=== PATIENT | female | born 1985 | race Caucasian/White ===

== ENCOUNTER 2019-11-10 10:37 | Emergency (ER) | payer OTHER, SELFPAY ==
[2019-11-10 11:10] VITALS: BP 116/79; PULSE 76; RESP 17; TEMP 36.7; O2SAT 98
--- NOTE | 2019-11-10 12:25 | ED.ANXIETY ---
HPI - Anxiety General Chief Complaint: Anxiety Stated Complaint: dizzy, nausea, panic attack Time Seen by Provider: 11/10/19 11:50 Source: patient Mode of arrival: ambulatory Limitations: no limitations History of Present Illness HPI narrative: This is a 33 year old female that presents to the ER for increasing anxiety x 5 days. Reports that she has been having panic attacks. Reports she will fill lightheaded, foggy, and have tingling in her hands. Reports she will feel like she is hyperventilating. Reports this has been happening intermittently over the weekend. Reports on Saturday she tried to smoke marijuana to see if that would help and it made her anxiety worse. Reports history of anxiety, is not currently on any medication for anxiety. She does not have a primary care doctor. Denies suicidal or homicidal ideations. Related Data Allergies Allergy/AdvReac Type Severity Reaction Status Date / Time No Known Allergies Allergy Verified 11/10/19 11:14 Review of Systems Review of Systems: Narrative: CONSTITUTIONAL: Denies fever CARDIOVASCULAR: Denies chest pain RESPIRATORY: Denies dyspnea. PSYCHIATRIC: Reports anxiety All systems reviewed & are unremarkable except as noted in HPI and below PMFSH Past Medical History Medical History (Updated 11/10/19 @ 12:32 by Kera Stroud PA-C) History of anxiety Social History Social History (Updated 11/10/19 @ 12:32 by Kera Stroud PA-C) Substance use: current Substance use type: marijuana Exam Narrative: Exam Narrative: GENERAL: Well-appearing, well-nourished, and in no acute distress. HEAD: Normocephalic, atraumatic. EYES: PERRLA and EOMI. ENT: Nares clear, no rhinorrhea or epistaxis. Mucous membranes moist. Oropharynx without tonsillar hypertrophy exudate or other lesions. Bilateral TMs pearly cool non-bulging NECK: Supple. No adenopathy or masses. CHEST: Clear to auscultation. No respiratory distress. No wheezes rales or rhonchi HEART: Regular rate and rhythm. No murmur heard. Normal peripheral pulses. EXTREMITIES: Normal range of motion. No edema. SKIN: Warm, dry, no rash. NEURO: No focal deficits. Alert and oriented x3. Cranial nerves II through XII grossly intact PSYCH: Anxious Course Vital Signs Vital signs: Vital Signs Temperature 98.1 F 11/10/19 11:10 Pulse Rate 76 11/10/19 11:10 Respiratory Rate 17 11/10/19 11:10 Blood Pressure 116/79 11/10/19 11:10 Pulse Oximetry 98 11/10/19 11:10 Temperature 98.1 F 11/10/19 11:10 Pulse Rate 76 11/10/19 11:10 Respiratory Rate 17 11/10/19 11:10 Blood Pressure 116/79 11/10/19 11:10 Pulse Oximetry 98 11/10/19 11:10 MDM - Anxiety MDM Narrative Medical decision making narrative: Patient presents the emergency department for increasing anxiety over the last 5 days. Reports history of anxiety in the past. Is not currently on any medication for this. She does not have a primary care doctor. Patient will be given buspirone as needed for anxiety until she is able to see a primary doctor. Patient is stable and felt appropriate for further outpatient evaluation. She was given warnings to return to the ER Critical Care Time Critical Care Time Critical Care Time: No Discharge Plan Discharge Clinical Impression: Acute anxiety Patient Disposition: Home, Self-Care Condition: Stable Instructions: Anxiety (ED) Additional Instructions: Return to the emergency department if you experience fever, chest pain, shortness of breath, thoughts of harming yourself or anyone else, or any other symptoms that are concerning to you Buspirone twice daily as needed for anxiety Follow-up with primary care doctor Prescriptions: New buspirone 10 mg tablet 10 mg PO BID PRN (Reason: anxiety) Qty: 14 RF: 0 Follow-up/Referrals: PHYSICIAN,TRAINING AND DEVELOPMENT SPECIALIST [Primary Care Provider] - Jamel Gaines MD [Physician] - 2 Days
[2019-11-10 12:38] VITALS: BP 115/72; PULSE 66; RESP 17; O2SAT 100
== END 2019-11-10 12:40 | disposition home or self-care (01) ==
PROVIDERS: Emergency Provider Emergency Medicine
DX: F41.9 Anxiety disorder, unspecified (principal)
CPT/HCPCS: 99283

== ENCOUNTER → 2020-03-21 14:01 | Outpatient (CLI) | payer OTHER, SELFPAY ==
--- NOTE | ~2020-03-21 | XR_ITS ---
EXAMINATION: XR chest 2V EXAM DATE: 03/21/2020 14:23 INDICATION: Tobacco use. TECHNIQUE: Frontal and lateral projections of the chest obtained and reviewed. There is no prior margarita dy for comparison. FINDINGS: The lungs are clear. There are no pleural effusions. The cardiomediastinal silhouette is within normal limits. There is no pneumothorax suspected. The bones and soft tissues are unremarkab le. IMPRESSION: No acute cardiopulmonary findings. Reviewed, dictated and finalized at location B. ID INTERN
== END ==
PROVIDERS: PCP Emergency Medicine; Visit Provider Emergency Medicine
DX: Z72.0 Tobacco use (principal)
CPT/HCPCS: 71046

== ENCOUNTER 2022-02-14 08:06 | Emergency (ER) | payer OTHER, SELFPAY ==
[2022-02-14 08:13] VITALS: BP 105/59; PULSE 130; RESP 16; TEMP 37.1; O2SAT 98
--- NOTE | 2022-02-14 08:18 | ED.SKABFB ---
HPI - Skin/Abscess/Foreign Bdy General Chief complaint: Skin/Abscess/Foreign Body Stated complaint: Bee Sting Time Seen by Provider: 02/14/22 08:08 Source: patient and RN notes reviewed History of Present Illness HPI narrative: Patient is a 36-year-old female who presents the urgent care with complaints of a lasting to the upper right thigh. Patient states that happened on Saturday and she has intermittently used hydrocortisone cream, Benadryl cream and oral Benadryl and ice. Patient denies any fevers, nausea or vomiting. States that it starting to burn, itch and be painful. No other acute complaints. No acute distress noted. Patient read the plan of care. Some parts of this dictation were generated by voice recognition software and may contain typographical and/or grammatical inaccuracies. Related Data Home Medications Medication Instructions Recorded Confirmed drospirenone 3 mg-ethinyl 1 tablet DAILY 02/14/22 02/14/22 estradiol 0.02 mg tablet fluoxetine 20 mg tablet 20 mg DAILY 02/14/22 02/14/22 Allergies Allergy/AdvReac Type Severity Reaction Status Date / Time No Known Allergies Allergy Verified 02/14/22 08:22 Review of Systems Review of Systems: CONSTITUTIONAL: Denies fever, chills, or sweats. EYES: Denies visual changes, redness, or discharge. ENT: Denies rhinorrhea, congestion, sore throat, or otalgia. CARDIOVASCULAR: Denies chest pain, palpitations, or edema. RESPIRATORY: Denies cough or dyspnea. GASTROINTESTINAL: Denies abdominal pain, nausea, vomiting, or diarrhea. GENITOURINARY: Denies dysuria or hematuria. SKIN: Reports of a wasp stings to the upper right thigh MUSCULOSKELETAL: Denies back pain, joint pain, or myalgia. NEUROLOGIC: Denies headache, numbness, or weakness. All other systems reviewed are negative, except as documented in HPI. [facility] [place] Past Medical History Medical History (Updated 02/14/22 @ 08:24 by SATURNINO Castañeda) History of anxiety Social History Social History (Updated 11/10/19 @ 12:32 by Kera Stroud PA-C) Substance use: current Substance use type: marijuana Comments At the time of my signature, I reviewed and agree with the nursing past medical, surgical, social, and family history. There is no relevant family history pertinent to the patient complaint. Exam Narrative: GENERAL: This is a well-nourished, well-developed patient, in no apparent distress. HEAD: normocephalic, atraumatic. EYES: PERRL. Sclera clear/white. Vision is grossly intact. EARS: External ears normal NOSE: External nose normal with no obvious nasal discharge, nares without redness, no rhinorrhea. THROAT: Mucous membranes moist NECK: Neck supple SKIN: 8x7cm of redness, warmth, and ecchymosis to the medial upper right thigh NEURO: awake, alert, and oriented to person, place and time. There were no obvious focal neurologic abnormalities. EXTREMITIES: No clubbing, cyanosis, or edema. Course Course Level of Care: Express Care Visit Vital Signs Vital signs: Vital Signs Temperature 98.8 F 02/14/22 08:13 Pulse Rate 130 H 02/14/22 08:13 Respiratory Rate 16 02/14/22 08:13 Blood Pressure 105/59 L 02/14/22 08:13 Pulse Oximetry 98 02/14/22 08:13 Oxygen Delivery Room Air 02/14/22 08:13 Temperature 98.8 F 02/14/22 08:13 Pulse Rate 130 H 02/14/22 08:13 Respiratory Rate 16 02/14/22 08:13 Blood Pressure 105/59 L 02/14/22 08:13 Pulse Oximetry 98 02/14/22 08:13 Oxygen Delivery Room Air 02/14/22 08:13 Reviewed MDM - Skin/Abscess/Foreign Bdy MDM Narrative Medical decision making narrative: Advised the patient to complete the oral antibiotic regimen as prescribed. Be sure to eat and drink with medication. Keep ice on the area for comfort. Use Tylenol/ibuprofen as needed. Continue Benadryl or take a daily antihistamine such as Zyrtec or Claritin. Follow-up with your PCP within 2 to 5 days or for worsening symptoms or failure to improve. Differential D
== END 2022-02-14 08:30 | disposition home or self-care (01) ==
PROVIDERS: Emergency Provider Nurse Practitioner Family
DX: T63.461A Toxic effect of venom of wasps, accidental (unintentional), initial encounter (principal); F41.9 Anxiety disorder, unspecified; F12.90 Cannabis use, unspecified, uncomplicated
CPT/HCPCS: 99213; G0463

== ENCOUNTER 2022-04-07 10:31 | Emergency (ER) | payer OTHER, SELFPAY ==
[2022-04-07 10:41] VITALS: BP 98/44; PULSE 75; RESP 16; TEMP 37.4; O2SAT 100
--- NOTE | 2022-04-07 12:43 | ED.URI ---
HPI - URI/Sore Throat General Chief Complaint: Upper Respiratory Infection Stated Complaint: Sore Throat Time Seen by Provider: 04/07/22 12:43 Source: patient, RN notes reviewed and old records reviewed Mode of arrival: ambulatory Limitations: no limitations History of Present Illness HPI Narrative: 36-year-old female who presents to [facility] with complaints of sore throat, nasal drainage with some complaints of nausea verbalized which started last night. Patient reports that she has not had any known fevers, has some occasional cough and nasal drainage. Patient has taken Ibuprofen for her symptoms. Patient has been Covid vaccinated no booster, no flu shot received. Patient reports that everyone in household was ill during week of Thanksgiving all better but she still not feeling well. MD elicited complaint: cough and sore throat Pain scale (0-10): 7 Treatments prior to arrival: ibuprofen Related Data Home Medications Medication Instructions Recorded Confirmed drospirenone 3 mg-ethinyl 1 tablet DAILY 02/14/22 04/07/22 estradiol 0.02 mg tablet fluoxetine 20 mg tablet 20 mg DAILY 02/14/22 04/07/22 Allergies Allergy/AdvReac Type Severity Reaction Status Date / Time No Known Allergies Allergy Verified 04/07/22 11:43 Review of Systems Review of Systems: CONSTITUTIONAL: Denies malaise, chills, sweats, or fever. EYES: Denies visual changes, redness, or discharge. ENT: Reports rhinorrhea, congestion, sinus pain, otalgia positive for sore throat. CARDIOVASCULAR: Denies chest pain, palpitations, or edema. RESPIRATORY: Reports cough.? Denies dyspnea. GASTROINTESTINAL: Denies abdominal pain, nausea, vomiting, diarrhea SKIN: Denies rash or itching. MUSCULOSKELETAL: Denies myalgia. NEUROLOGIC: Denies headache. All systems reviewed & are unremarkable except as noted in HPI and below PMFSH Past Medical History Medical History (Updated 04/11/22 @ 20:53 by Sveta Ramírez NP) History of anxiety IBS (irritable bowel syndrome) Social History Social History (Updated 04/11/22 @ 20:54 by Sveta Ramírez NP) Smoking packs per day: 0.25 Smoking cigarettes per day: 5.0 Years smoked: 20 Smoking pack-years: 5.00 Smoking status: Current every day smoker Tobacco type: cigarettes Alcohol intake: unknown Substance use: current Substance use type: marijuana Gender identity (if verbalized by the patient): Female Comments At time of signature, agree with nursing past medical, surgical, social and family history. There is no relevant family history pertinent to the presenting complaint Exam Narrative: GENERAL: Well-appearing, well-nourished, and in no acute distress. HEAD: Normocephalic EYES: PERRLA, conjunctivae clear ENT: Nares clear, turbinates edematous and erythematous, clear discharge. Mucous membranes moist. TM pearly cool with dull light reflex bilaterally; no tragal tenderness. Oropharynx erythematous without lesions. Tonsils not enlarged and without exudate, no drooling, no hoarseness, no trismus, uvula midline.post nasal drainage. NECK: Supple. No lymphadenopathy CHEST: Clear to auscultation, breath sounds equal. No wheezing, rhonchi, rales, or stridor. No respiratory distress, speaks in full sentences.occasional cough SAO2 100% on room air HEART: Regular rate and rhythm. No murmur heard. SKIN: Warm, dry, no rash. NEURO: Alert and oriented x3. PSYCH: Normal mood and affect Course Course Emergency Course: Patient is aware of diagnosis, understands and agrees to treatment plan.? Anticipatory guidance given.? Patient agrees to follow-up as directed and is aware of reasons to seek care at the emergency department. Portions of this record may have been created with voice recognition software Level of Care: Express Care Visit Vital Signs Vital signs: Vital Signs Temperature 37.4 C 04/07/22 10:41 Pulse Rate 75 04/07/22 10:41 Respiratory Rate 16 03/29
== END 2022-04-07 13:03 | disposition home or self-care (01) ==
PROVIDERS: Emergency Provider Registered Nurse
DX: J32.9 Chronic sinusitis, unspecified (principal)
CPT/HCPCS: 87081; 87880; 99213; G0463

== ENCOUNTER 2023-02-05 12:21 | Emergency (ER) | payer OTHER, SELFPAY ==
[2023-02-05 12:24] VITALS: BP 111/62; PULSE 77; RESP 16; TEMP 36.8; O2SAT 98
--- NOTE | 2023-02-05 12:48 | ED.GENADULT ---
HPI - General Adult General Chief complaint: Upper Respiratory Infection Stated complaint: Sore Throat Source: patient Mode of arrival: ambulatory Limitations: no limitations History of Present Illness HPI narrative: Patient presents for evaluation of sore throat for last 3 days. No fever, chills, nausea, vomiting, cough, shortness of breath, diarrhea. Her and child are currently ill but have sinus congestion and cough. Pt has tried OTC tylenol and ibuprofen without considerable improvement in her symptoms thereafter. Related Data Home Medications Medication Instructions Recorded Confirmed drospirenone 3 mg-ethinyl 1 tablet DAILY 02/14/22 04/07/22 estradiol 0.02 mg tablet fluoxetine 20 mg tablet 20 mg DAILY 02/14/22 04/07/22 Allergies Allergy/AdvReac Type Severity Reaction Status Date / Time No Known Allergies Allergy Verified 04/07/22 11:43 Review of Systems Review of Systems: CONSTITUTIONAL: Denies fever, chills, or sweats. EYES: Denies visual changes, redness, or discharge. ENT:Reports sore throat. Denies rhinorrhea, congestion, or otalgia. CARDIOVASCULAR: Denies chest pain, palpitations, or edema. RESPIRATORY: Denies cough or dyspnea. GASTROINTESTINAL: Denies abdominal pain, nausea, vomiting, or diarrhea. GENITOURINARY: Denies dysuria or hematuria. SKIN: Denies rash or itching. MUSCULOSKELETAL: Denies back pain, joint pain, or myalgia. NEUROLOGIC: Denies headache, numbness, dizziness, or weakness. PSYCHIATRIC: Denies anxiety or depression. [facility] Past Medical History Medical History (Updated 02/05/23 @ 12:54 by SATURNINO Leyva, FRANKO) History of anxiety IBS (irritable bowel syndrome) Surgical History Surgical History No pertinent past surgical history Family History Family History Mother Family history non-contributory Social History Social History Smoking packs per day: 0.25 Smoking cigarettes per day: 5.0 Years smoked: 20 Smoking pack-years: 5.00 Smoking status: Current every day smoker Tobacco type: cigarettes Alcohol intake: unknown Substance use: current Substance use type: marijuana Living arrangements: with family Gender identity (if verbalized by the patient): Female Exam Narrative: GENERAL: Well-appearing, well-nourished, and in no acute distress. HEAD: Normocephalic, atraumatic. EYES: PERRLA and EOMI. ENT: Nares clear, no rhinorrhea or epistaxis. Mucous membranes moist. Posterior pharyngeal erythema without exudate. Uvula is midline. Bilateral TMs pearly cool nonbulging NECK: Supple. No adenopathy or masses. No carotid bruits or JVD CHEST: Clear to auscultation. No respiratory distress. No wheezes rales or rhonchi HEART: Regular rate and rhythm. No murmur heard. Normal peripheral pulses. ABDOMEN: Soft, nontender, nondistended, normal active bowel sounds. EXTREMITIES: Normal range of motion. No edema. SKIN: Warm, dry, no rash. NEURO: No focal deficits. Alert and oriented x3. PSYCH: Normal mood and affect. Course Course Emergency Course: This is a 37-year-old female who presented for evaluation of sore throat. Rapid strep negative. Through shared decision-making we agreed to move forward with amoxicillin therapy. Increase hydration. [id number]-[id number] agents for symptom management. Follow up with primary provider. Go to the ER for worsening symptoms. Patient in agreement with plan of care. Level of Care: Express Care Visit Vital Signs Vital signs: Vital Signs Temperature 36.8 C 02/05/23 12:24 Pulse Rate 77 02/05/23 12:24 Respiratory Rate 16 02/05/23 12:24 Blood Pressure 111/62 02/05/23 12:24 Pulse Oximetry 98 02/05/23 12:24 Oxygen Delivery Room Air 02/05/23 12:24 Temperature 36.8 C 02/05/23 12:24 Pulse Ra
== END 2023-02-05 12:48 | disposition home or self-care (01) ==
PROVIDERS: Emergency Provider Nurse Practitioner; PCP Nurse Practitioner Family
DX: J02.9 Acute pharyngitis, unspecified (principal); F17.210 Nicotine dependence, cigarettes, uncomplicated; F41.9 Anxiety disorder, unspecified
CPT/HCPCS: 87081; 87880; 99213; G0463

== ENCOUNTER 2024-12-01 10:22 | Emergency (ER) | payer SELFPAY ==
[2024-12-01 10:26] VITALS: BP 114/70; PULSE 76; RESP 20; TEMP 36.9; O2SAT 100
--- NOTE | 2024-12-01 10:31 | ED.GENADULT ---
HPI - General Adult General Chief complaint: Dizziness Stated complaint: severe vertigo Time Seen by Provider: 12/01/24 10:31 Source: patient Mode of arrival: ambulatory Limitations: no limitations History of Present Illness HPI narrative: 38-year-old female presented for complaint of dizziness. Onset this morning. Endorses nausea and vomiting this morning as well. Endorses a history of BPPV and has used the Conner maneuver in the past, but states today it did not help. She says the dizziness is constant which is unusual, and Says in the past she has had cerumen impaction when the dizziness was constant, which required removal prior to resolution of symptoms. Currently denies ear pain. Related Data Home Medications ?Medication ?Instructions ?Recorded ?Confirmed ?Last Taken ?Type drospirenone 3 mg-ethinyl 1 tablet DAILY 02/14/22 04/07/22 Unknown History estradiol 0.02 mg tablet Allergies Allergy/AdvReac Type Severity Reaction Status Date / Time No Known Allergies Allergy Verified 12/01/24 10:46 Review of Systems Review of Systems: CONSTITUTIONAL: Denies malaise, chills, or fever. EYES: Denies visual changes, redness, or discharge. ENT: Denies rhinorrhea, congestion, sinus pain, and sore throat, ear pain CARDIOVASCULAR: Denies chest pain, palpitations, or edema. RESPIRATORY: Denies cough or dyspnea. GASTROINTESTINAL: Denies abdominal pain, nausea, vomiting, diarrhea SKIN: Denies rash or itching. MUSCULOSKELETAL: Denies myalgia. NEUROLOGIC: reports dizziness Denies headache. All systems reviewed & are unremarkable except as noted in HPI and below PMFSH Past Medical History Medical History (Updated 12/01/24 @ 11:24 by Chloé Dobbs APRN) IBS (irritable bowel syndrome) History of anxiety Surgical History Surgical History No pertinent past surgical history Family History Family History Mother Family history non-contributory Social History Social History Smoking packs per day: 0.25 Smoking cigarettes per day: 5.0 Years smoked: 20 Smoking pack-years: 5.00 Smoking status: Current every day smoker Tobacco type: cigarettes Alcohol intake: unknown Substance use: current Substance use type: marijuana Living arrangements: with family Gender identity (if verbalized by the patient): Female Comments At time of signature, agree with nursing past medical, surgical, social and family history. There is no relevant family history pertinent to the presenting complaint Exam Narrative: GENERAL: mildly ill-appearing, and in no acute distress. HEAD: Normocephalic EYES: PERRLA, conjunctivae clear ENT: Nares clear. Mucous membranes moist. TMs unable to visualize bilaterally due to cerumen impaction; canals not erythematous, no drainage, no tragal tenderness. NECK: Supple. No lymphadenopathy CHEST: Clear to auscultation, breath sounds equal. HEART: Regular rate and rhythm. SKIN: Warm, dry, no rash. NEURO: Alert and oriented x3. PSYCH: Normal mood and affect Course Course Emergency Course: Patient is aware of diagnosis, understands and agrees to treatment plan. Anticipatory guidance given. Patient agrees to follow-up as directed and is aware of reasons to seek care at the emergency department. Portions of this record may have been created with voice recognition software Level of Care: Express Care Visit Vital Signs Vital signs: Vital Signs Temperature 98.4 F 12/01/24 10:26 Pulse Rate 76 12/01/24 10:26 Respiratory Rate 20 12/01/24 10:26 Blood Pressure 114/70 12/01/24 10:26 Pulse Oximetry 100 12/01/24 10:26 Oxygen Delivery Room Air 12/01/24 10:26 Temperature 98.4 F 12/01/24 10:26 Pulse Rate 92 12/01/24 10:40 Respiratory Rate 20 12/01/24 10:26 Blood Pressure 112/67 12/01/24 10:40 Pulse Oximetry 100 12/01/24 10:26 Oxygen Delivery Room Air 12/01/24 10:26 Reviewed Procedures Ear Wax Removal Both Ears: Cerumenolytic Used: other ( warm water and hydrogen peroxide) Results: Re-examined: cerumen removed completely TM Examination: TM(s) intact, normal appearance Ear Canal Exam: atraumatic Patient Tolerated Procedure: well and no complications Technique: ear canal irrigated and ear canal curetted Additional Comments: Large amount of thick cerumen removed without difficulty, pt reported improvement in hearing and clarity. Medical Decision Making MDM Narrative Medical decision making narrative: Pt presented with dizziness. Orthostatic BP completed in clinic. Reported dizziness without significant decrease in BP. Discussed physical exam findings consistent with bilateral cerumen impaction. Patient tolerated cerumen removal and reported improvement in hearing and 'clarity.' Rx zofran. Pt will monitor . Advised supportive measures and signs/symptoms to go to the ER. Patient is appropriate for outpatient treatment and follow-up. Differential Diagnosis Differential Diagnosis: Coronavirus, strep pharyngitis, allergic rhinitis, upper respiratory tract infection, sinusitis, rhinosinusitis, nasopharyngitis, viral pharyngitis, otitis media, otitis externa, eustachian tube dysfunction, foreign body, cerumen impaction. Vital Signs Vital Signs: Vital Signs Temperature 98.4 F 12/01/24 10:26 Pulse Rate 76 12/01/24 10:26 Respiratory Rate 20 12/01/24 10:26 Blood Pressure 114/70 12/01/24 10:26 Pulse Oximetry 100 12/01/24 10:26 Oxygen Delivery Room Air 12/01/24 10:26 Temperature 98.4 F 12/01/24 10:26 Pulse Rate 92 12/01/24 10:40 Respiratory Rate 20 12/01/24 10:26 Blood Pressure 112/67 12/01/24 10:40 Pulse Oximetry 100 12/01/24 10:26 Oxygen Delivery Room Air 12/01/24 10:26 Discharge Plan Discharge Clinical Impression: Bilateral impacted cerumen, Benign paroxysmal positional vertigo Patient Disposition: Home Condition: Stable Instructions: Antibiotic Form, Benign Paroxysmal Positional Vertigo (ED) Additional Instructions: For ear wax: Please use a earwax softening agent such as [id number] Debrox or a mixture of 1 part hydrogen peroxide in 1 part warm water several times weekly to keep your earwax soft and prevent further impaction. For dizziness: Change positions slowly Sit down immediately if you feel dizzy or lightheaded Increase water intake, stay hydrated Watch for worsening symptoms (headache, vision changes, dizziness that does not go away, chest pain, heart racing, sweating) Go to the ER for these symptoms or any other concerns. follow-up with your primary care provider, call today to schedule appointment Patient Language: Belarusian Prescriptions: New ondansetron 4 mg tablet,disintegrating 4 mg PO Q8H PRN (Reason: nausea and vomiting) Qty: 8 0RF No Action drospirenone-ethinyl estradiol 3-0.02 mg tablet 1 tablet DAILY Follow-up/Referrals: Sienna,Fadumo Wilson APRN [Primary Care Provider] - Time of Disposition: 11:24
[2024-12-01 10:33] VITALS: BP 120/66; PULSE 68
[2024-12-01 10:36] VITALS: BP 112/67; PULSE 71
[2024-12-01 10:40] VITALS: BP 112/67; PULSE 92
== END 2024-12-01 11:26 | disposition home or self-care (01) ==
PROVIDERS: Emergency Provider Nurse Practitioner Family; PCP Nurse Practitioner Family
DX: H61.23 Impacted cerumen, bilateral (principal); H81.10 Benign paroxysmal vertigo, unspecified ear; F17.210 Nicotine dependence, cigarettes, uncomplicated; F12.90 Cannabis use, unspecified, uncomplicated
CPT/HCPCS: 69210; 99213; G0463